=== PATIENT | male | born 1985 | race Caucasian/White ===

== ENCOUNTER 2019-07-08 12:25 | Emergency (ER) | payer OTHER ==
[~2019-07-08] VITALS: Ht 175.3 cm; Wt 73.1 kg
[2019-07-08] MEDS ORDERED: KEPP1TAB2 PO (12:37)
[2019-07-08 13:28] LABS: BASO # 0.1 10^3/uL (0.0-0.2); BASO % 1.1 % (0.0-1.0); EOS # 0.3 10^3/uL (0.0-0.5); EOS % 4.2 % (0.0-3.0); HEMATOCRIT 46.1 % (42.0-52.0); HEMOGLOBIN 15.8 g/dl (13.5-17.5); LYMPH # 2.4 10^3/uL (1.5-5.0); LYMPH % 36.9 % (24.0-44.0); MEAN CORPUSCULAR HEMOGLOBIN 31.7 pg (27.0-33.0); MEAN CORPUSCULAR HGB CONC 34.3 g/dl (32.0-36.5); MEAN CORPUSCULAR VOLUME 92.6 fl (80.0-96.0); MONO # 0.3 10^3/uL (0.0-0.8); MONO % 4.8 % (0.0-5.0); NEUTROPHILS # 3.4 10^3/uL (1.5-8.5); NEUTROPHILS % 52.8 % (36.0-66.0); PLATELET COUNT, AUTOMATED 189 10^3/uL (150-450); RED BLOOD COUNT 4.98 10^6/uL (4.30-6.10); WHITE BLOOD COUNT 6.5 10^3/uL (4.0-10.0)
--- NOTE | 2019-07-08 13:37 | REP ---
Clinical: Syncope . Comparison: None . Findings: The mediastinum and cardiac silhouette are stable and within normal limits for portable technique. The lung osborne are clear without acute consolidation, effusion, or pneumothorax. Skeletal structures are intact. Impression: No acute cardiopulmonary process appreciated. Electronically Signed by Josh Pat MD 07/08/2019 01:29 P
--- NOTE | 2019-07-08 13:50 | REP ---
Clinical: Syncope. Injury. . Comparison: None . Findings: The ventricles, sulci, and cisterns are normal in position and appearance. Antunez-white differentiation is maintained. No acute intracranial hemorrhage, mass/mass effect, pathology or trauma/injury. No evidence for acute infarction. No extra-axial fluid collection. Calvarium is intact. Paranasal sinuses and mastoid air cells are clear. Impression: Normal noncontrast head CT. No evidence for acute intracranial pathology or trauma/injury. Electronically Signed by Josh Pat MD 07/08/2019 01:42 P
--- NOTE | 2019-07-08 13:51 | REP ---
Clinical: Syncope. Fall/injury. Technique: Axial noncontrast images from the skull base to the thoracic inlet with coronal and sagittal re-formations Findings: Normal alignment and lordosis is maintained. Cervical vertebral bodies including transverse processes and spinous processes are intact and there is no evidence for acute fracture / compression injury or subluxation. Spinal canal is patent. Posterior elements are intact. Paravertebral soft tissues are normal. Impression: Normal noncontrast cervical spine CT. No evidence for acute pathology or trauma/injury. Electronically Signed by Josh Pat MD 07/08/2019 01:43 P
[2019-07-08 13:56] LABS: BLOOD UREA NITROGEN 9 MG/DL (7-18); CALCIUM LEVEL 9.3 MG/DL (8.5-10.1); CARBON DIOXIDE LEVEL 24 MEQ/L (21-32); CHLORIDE LEVEL 108 MEQ/L (98-107); CK-MB VALUE MASS 1.9 NG/ML (<3.6); CPK CREATINE PHOSPHOKINASE 187 U/L (39-308); CREATININE FOR GFR 0.74 MG/DL (0.70-1.30); GLOMERULAR FILTRATION RATE > 60.0 (>60); GLUCOSE, FASTING 83 MG/DL (70-100); MB/CK RELATIVE INDEX 1.02 (< OR =4); NT-PRO BNP 55 PG/ML (<125); POTASSIUM SERUM 4.3 MEQ/L (3.5-5.1); SODIUM LEVEL 140 MEQ/L (136-145); TROPONIN I < 0.02 NG/ML (< 0.10)
[2019-07-08 14:12] LABS: INR 1.15; PROTHROMBIN TIME 14.4 SECONDS (11.8-14.0)
[2019-07-08 14:13] LABS: PARTIAL THROMBOPLASTIN TIME 32.8 SECONDS (25.0-38.4)
[2019-07-08 14:15] LABS: D-DIMER QUANT 332.49 ng/ml (<500)
[2019-07-08] MEDS ORDERED: DERMABOND TOPICAL SKIN ADHESIVE TOP ONE (14:15)
[2019-07-08] MEDS ORDERED: ADACEL/BOOSTRIX VACCINE (DIPHTH/PERTUSS/ACELL/TETANUS)0.5ML SYR (90715) IM ONE (14:30)
[2019-07-08 15:02] LABS: AMPHETAMINES LEVEL URINE NEGATIVE (NEGATIVE); BARBITURATES URINE NEGATIVE (NEGATIVE); BENZODIAZEPINES URINE NEGATIVE (NEGATIVE); CANNABINOIDS URINE NEGATIVE (NEGATIVE); COCAINE METABOLITE URINE NEGATIVE (NEGATIVE); METHADONE URINE NEGATIVE (NEGATIVE); OPIATES URINE NEGATIVE (NEGATIVE); PHENCYCLIDINE URINE NEGATIVE (NEGATIVE)
[2019-07-08] MEDS ORDERED: levETIRAcetam INJection 1,000 MG in D5W 100 ML IV ONE (15:15)
[2019-07-08] MEDS ORDERED: IBUP-1022 PO (15:49)
[2019-07-08 16:34] VITALS: BP 107/55
--- NOTE | 2019-07-09 07:04 | ECGEPIP ---
[facility] - ED Test Date: 2019-07-08 Pat Name: HAKEEM REESE Department: Room: - Gender: Male Crt: JOSUE : 1985 Requested By: Adalberto Garcia Order Number: [id number] Reading MD: Adalberto Cedeno Measurements Intervals [place] Rate: 50 P: 69 [place]: 164 QRS: 104 QRSD: 89 T: 68 QT: 419 QTc: 384 Interpretive Statements SINUS BRADYCARDIA RIGHT AXIS DEVIATION NO PRIORS FOR COMPARISON Electronically Signed on 07-09-2019 7:03:55 EDT by Adalberto Cedeno
== END 2019-07-08 16:36 | disposition home or self-care (01) ==
LOC: EDBD 12:25 → M ED 12:25
DX: R55 Syncope and collapse (principal); G40.909 Epilepsy, unspecified, not intractable, without status epilepticus; S01.81XA Laceration without foreign body of other part of head, initial encounter; W19.XXXA Unspecified fall, initial encounter; Y92.89 Other specified places as the place of occurrence of the external cause; Y93.89 Activity, other specified; Y99.8 Other external cause status; R00.1 Bradycardia, unspecified; R07.9 Chest pain, unspecified; Z79.899 Other long term (current) drug therapy; F17.200 Nicotine dependence, unspecified, uncomplicated
CPT/HCPCS: 12011; 36415; 70450; 71045; 72125; 80048; 80180; 80307; 81001; 82550; 82553; 83880; 84484; 85025; 85379; 85610; 85730; 90471; 90715; 93005; 93041; 94760; 96365; 99285; J1953

== ENCOUNTER 2020-01-29 02:57 | Emergency (ER) | payer OTHER ==
[~2020-01-29] VITALS: Ht 175.3 cm; Wt 77.3 kg
[~2020-01-29 02:57] MED LIST: IBUP-1022 PO; KEPP1TAB2 PO
[2020-01-29] MEDS ORDERED: NS 1,000 ML IV ONE (03:30)
[2020-01-29] MEDS ORDERED: levETIRAcetam INJection 1,500 MG in D5W 100 ML IV ONE (03:30)
[2020-01-29 03:55] LABS: BLOOD UREA NITROGEN 8 MG/DL (7-18); CALCIUM LEVEL 8.1 MG/DL (8.5-10.1); CARBON DIOXIDE LEVEL 28 MEQ/L (21-32); CHLORIDE LEVEL 112 MEQ/L (98-107); CREATININE FOR GFR 0.65 MG/DL (0.70-1.30); GLOMERULAR FILTRATION RATE > 60.0 (>60); GLUCOSE, FASTING 72 MG/DL (70-100); SODIUM LEVEL 145 MEQ/L (136-145)
[2020-01-29 04:30] VITALS: BP 108/59
[2020-01-30] MEDS ORDERED: KEPP1TAB PO (16:12)
== END 2020-01-29 04:53 | disposition home or self-care (01) ==
LOC: M ED 02:57
DX: G40.909 Epilepsy, unspecified, not intractable, without status epilepticus (principal); Z91.19 Patient's noncompliance with other medical treatment and regimen
CPT/HCPCS: 80048; 96365; 99284; J1953

== ENCOUNTER 2020-01-30 16:04 | Emergency (ER) | payer OTHER ==
[~2020-01-30] VITALS: Ht 177.8 cm; Wt 72.7 kg
[2020-01-30] MEDS ORDERED: KEPP1TAB PO (16:12)
[2020-01-30] MEDS ORDERED: NS 1,000 ML IV ONE (16:15)
--- NOTE | 2020-01-30 16:18 | ECGEPIP ---
[facility] - ED Test Date: 2020-01-30 Pat Name: HAKEEM REESE Department: Room: - Gender: Male General Doc: : 1985 Requested By: ZULEIKA IRWIN Order Number: [id number] Reading MD: Emily Jackson Measurements Intervals [place] Rate: 58 P: 63 [place]: 162 QRS: 107 QRSD: 87 T: 62 QT: 416 QTc: 411 Interpretive Statements SINUS BRADYCARDIA POSSIBLE LEFT ATRIAL ENLARGEMENT MARKED RIGHT AXIS DEVIATION SIMILAR 07/08/19 Electronically Signed on 01-30-2020 16:17:55 EDT by Emily Jackson
[2020-01-30 16:24] LABS: BASO # 0.1 10^3/uL (0.0-0.2); BASO % 1.5 % (0.0-1.0); EOS # 0.1 10^3/uL (0.0-0.5); EOS % 2.3 % (0.0-3.0); HEMATOCRIT 47.3 % (42.0-52.0); HEMOGLOBIN 15.5 g/dl (13.5-17.5); LYMPH # 1.5 10^3/uL (1.5-5.0); LYMPH % 25.6 % (24.0-44.0); MEAN CORPUSCULAR HEMOGLOBIN 30.2 pg (27.0-33.0); MEAN CORPUSCULAR HGB CONC 32.8 g/dl (32.0-36.5); MONO # 0.7 10^3/uL (0.0-0.8); MONO % 11.3 % (0.0-5.0); NEUTROPHILS # 3.5 10^3/uL (1.5-8.5); PLATELET COUNT, AUTOMATED 281 10^3/uL (150-450); RED BLOOD COUNT 5.14 10^6/uL (4.30-6.10)
[2020-01-30] MEDS ORDERED: levETIRAcetam INJection 1,000 MG in D5W 100 ML IV ONE (16:30)
--- NOTE | 2020-01-30 16:39 | REP ---
Clinical: Altered mental status . Comparison: 07/08/2019. Technique: Axial noncontrast images from the skull base to the vertex with coronal re-formations. Findings: The ventricles, sulci, and cisterns are normal in position and appearance. Antunez-white differentiation is maintained. No acute intracranial hemorrhage, mass/mass effect, pathology or trauma/injury. No evidence for acute infarction. No extra-axial fluid collection. Calvarium is intact. Paranasal sinuses and mastoid air cells are clear. Impression: Normal noncontrast head CT. No evidence for acute intracranial pathology or trauma/injury. Electronically Signed by oJsh Pat MD 01/30/2020 04:31 P
[2020-01-30 17:06] LABS: ACETAMINOPHEN LEVEL < 2.0 UG/ML (10.0-30.0); ALBUMIN 3.6 GM/DL (3.2-5.2); ALT/SGPT 24 U/L (12-78); BILIRUBIN,DIRECT 0.1 MG/DL (0.0-0.2); BILIRUBIN,TOTAL 0.2 MG/DL (0.2-1.0); BLOOD UREA NITROGEN 10 MG/DL (7-18); CALCIUM LEVEL 8.8 MG/DL (8.5-10.1); CARBON DIOXIDE LEVEL 28 MEQ/L (21-32); CHLORIDE LEVEL 107 MEQ/L (98-107); CK-MB VALUE MASS < 1.0 NG/ML (<3.6); CPK CREATINE PHOSPHOKINASE 101 U/L (39-308); CREATININE FOR GFR 0.72 MG/DL (0.70-1.30); ETHYL ALCOHOL (ETHANOL) < 0.003 % (0.000-0.010); GLOMERULAR FILTRATION RATE > 60.0 (>60); GLUCOSE, FASTING 88 MG/DL (70-100); MB/CK RELATIVE INDEX 0.99 (< OR =4); POTASSIUM SERUM 4.3 MEQ/L (3.5-5.1); SALICYLATE LEVEL 3.1 MG/DL (5.0-30.0); SODIUM LEVEL 142 MEQ/L (136-145); TOTAL PROTEIN 7.1 GM/DL (6.4-8.2); TROPONIN I < 0.02 NG/ML (< 0.10)
[2020-01-30 17:45] VITALS: BP 114/62
== END 2020-01-30 18:05 | disposition home or self-care (01) ==
LOC: M ED 16:04
DX: R56.9 Unspecified convulsions (principal); R00.1 Bradycardia, unspecified; F19.10 Other psychoactive substance abuse, uncomplicated; S09.90XA Unspecified injury of head, initial encounter; X58.XXXA Exposure to other specified factors, initial encounter; Y92.9 Unspecified place or not applicable; Y93.9 Activity, unspecified; Y99.9 Unspecified external cause status; Z91.14 Patient's other noncompliance with medication regimen; F17.200 Nicotine dependence, unspecified, uncomplicated; Z79.899 Other long term (current) drug therapy
CPT/HCPCS: 70450; 80048; 80076; 80180; 82550; 82553; 84484; 85025; 93005; 93041; 94760; 96365; 99285; G0480; J1953

== ENCOUNTER 2020-01-31 15:10 | Emergency (ER) | payer OTHER ==
[~2020-01-31] VITALS: Ht 177.8 cm; Wt 72.7 kg
[~2020-01-31 15:10] MED LIST changes: +KEPP1TAB PO
[2020-01-31 16:15] LABS: BASO # 0.1 10^3/uL (0.0-0.2); BASO % 1.7 % (0.0-1.0); EOS # 0.2 10^3/uL (0.0-0.5); EOS % 3.3 % (0.0-3.0); HEMATOCRIT 48.2 % (42.0-52.0); LYMPH # 1.3 10^3/uL (1.5-5.0); LYMPH % 26.5 % (24.0-44.0); MEAN CORPUSCULAR HEMOGLOBIN 30.4 pg (27.0-33.0); MEAN CORPUSCULAR HGB CONC 33.2 g/dl (32.0-36.5); MEAN CORPUSCULAR VOLUME 91.5 fl (80.0-96.0); MONO # 0.7 10^3/uL (0.0-0.8); MONO % 14.9 % (0.0-5.0); NEUTROPHILS # 2.6 10^3/uL (1.5-8.5); NEUTROPHILS % 53.2 % (36.0-66.0); PLATELET COUNT, AUTOMATED 243 10^3/uL (150-450); RED BLOOD COUNT 5.27 10^6/uL (4.30-6.10); WHITE BLOOD COUNT 4.8 10^3/uL (4.0-10.0)
--- NOTE | 2020-01-31 17:25 | REP ---
CT BRAIN WITHOUT IV CONTRAST: CT brain performed without IV contrast. Coronal reconstruction images are performed. The ventricles are normal in size and position with no midline shift or mass effect. Antunez/white differentiation is well maintained. There is no acute intracranial hemorrhage. There is no extra-axial fluid collections. There is no skull fracture. IMPRESSION: Negative noncontrast CT brain. Electronically Signed by Yung Antunez MD 02/01/2020 10:26 A
[2020-01-31 18:30] VITALS: BP 105/58
[2020-01-31 18:34] LABS: BLOOD UREA NITROGEN 10 MG/DL (7-18); CALCIUM LEVEL 8.4 MG/DL (8.5-10.1); CARBON DIOXIDE LEVEL 27 MEQ/L (21-32); CHLORIDE LEVEL 108 MEQ/L (98-107); CREATININE FOR GFR 0.57 MG/DL (0.70-1.30); GLOMERULAR FILTRATION RATE > 60.0 (>60); GLUCOSE, FASTING 95 MG/DL (70-100); POTASSIUM SERUM 4.6 MEQ/L (3.5-5.1); SODIUM LEVEL 141 MEQ/L (136-145)
--- NOTE | 2020-01-31 18:54 | ECGEPIP ---
[facility] - ED Test Date: 2020-01-31 Pat Name: HAKEEM REESE Department: Room: - Gender: Male Pastoral Assistant: FABRICIO : 1985 Requested By: Camden Carr Order Number: [id number] Reading MD: Camden Carr Measurements Intervals [place] Rate: 58 P: 57 [place]: 163 QRS: 102 QRSD: 88 T: 61 QT: 415 QTc: 409 Interpretive Statements SINUS BRADYCARDIA WITH SINUS ARRHYTHMIA POSSIBLE LEFT ATRIAL ENLARGEMENT MARKED RIGHT AXIS DEVIATION NONSPECIFIC ST T WAVE [facility]ES cw 01/30/[address] T [facility] Electronically Signed on 01-31-2020 18:53:40 EDT by Camden Carr
== END 2020-01-31 18:54 | disposition home or self-care (01) ==
LOC: M ED 15:10
DX: R56.9 Unspecified convulsions (principal); S09.90XA Unspecified injury of head, initial encounter; X58.XXXA Exposure to other specified factors, initial encounter; Y92.9 Unspecified place or not applicable; Y93.9 Activity, unspecified; Y99.9 Unspecified external cause status; R00.1 Bradycardia, unspecified

== ENCOUNTER 2020-05-17 16:42 | Emergency (ER) | payer OTHER ==
[~2020-05-17] VITALS: Ht 170.2 cm; Wt 72.7 kg
[2020-05-17] MEDS ORDERED: FLOM0.4C39 PO ×2 (16:49→18:01)
[2020-05-17] MEDS ORDERED: TAMSULOSIN 0.4 MG CAP PO ONE (18:00)
[2020-05-17 21:04] VITALS: BP 129/65
== END 2020-05-17 21:05 | disposition home or self-care (01) ==
LOC: M ED 16:42
DX: R33.9 Retention of urine, unspecified (principal); G40.919 Epilepsy, unspecified, intractable, without status epilepticus; F17.200 Nicotine dependence, unspecified, uncomplicated; Z79.899 Other long term (current) drug therapy

== ENCOUNTER 2020-06-11 16:06 | Inpatient (IN) | payer OTHER ==
[~2020-06-11 16:06] MED LIST changes: +DOCUSATE SODIUM 100 MG CAP ONE; +ENOXAPARIN 40MG/0.4ML SYRINGE (J1650 PER 10MG) ONE; +ETOMIDATE INJ 20MG/10ML VIAL ONE; +FLOM0.4C39 PO; +SUCCINYLCHOLINE 100 MG/5 ML SYRINGE (J0330) ONE; +propofoL 200 MG/20 ML VIAL ONE
[2020-06-11] MEDS ORDERED: NALOXONE 2MG/2ML SYRINGE (J2310 PER 1MG) As Ordered ONE ×2 (16:13→16:32)
[2020-06-11] MEDS ORDERED: NALOXONE 2MG/2ML SYRINGE (J2310 PER 1MG) ONE ×2 (16:13→16:32)
[2020-06-11] MEDS ORDERED: SUCCINYLCHOLINE INJ 200 MG/10 ML VIAL (J0330) ONE (16:32)
[2020-06-11] MEDS ORDERED: ETOMIDATE INJ 20MG/10ML VIAL ONE (16:32)
[2020-06-11] MEDS ORDERED: PROPOFOL 1,000 MG/100 ML VIAL ONE ×3 (16:32→23:18)
[2020-06-11] MEDS ORDERED: ETOMIDATE INJ 20MG/10ML VIAL As Ordered ONE (16:39)
[2020-06-11] MEDS ORDERED: SUCCINYLCHOLINE INJ 200 MG/10 ML VIAL (J0330) As Ordered ONE (16:40)
[2020-06-11] MEDS ORDERED: PROPOFOL 1,000 MG/100 ML VIAL As Ordered ONE ×3 (16:45→23:18)
[2020-06-11] MEDS ORDERED: MIDAZOLAM 5MG/ML 1ML VIAL (J2250 PER 1MG) ONE ×4 (16:54→20:30)
[2020-06-11] MEDS ORDERED: MIDAZOLAM 5MG/ML 1ML VIAL (J2250 PER 1MG) As Ordered ONE ×4 (16:54→20:30)
[2020-06-11] MEDS ORDERED: MIDAZOLAM INJ 2MG/2ML VIAL (J2250 PER 1MG) As Ordered ONE ×2 (17:30→17:36)
[2020-06-11] MEDS ORDERED: MIDAZOLAM INJ 2MG/2ML VIAL (J2250 PER 1MG) ONE ×4 (17:30→17:36)
[2020-06-11] MEDS ORDERED: CHARCOAL ACTIVATED LIQUID 25 GM/120 ML BTL As Ordered ONE (18:39)
[2020-06-11] MEDS ORDERED: PERCOCET 5MG/325MG TAB ONE (18:43)
[2020-06-11] MEDS ORDERED: CHARCOAL ACTIVATED LIQUID 25 GM/120 ML BTL ONE (19:08)
[2020-06-11] MEDS ORDERED: DOCUSATE SODIUM 100 MG CAP ONE (21:18)
[2020-06-11] MEDS ORDERED: HEPARIN SOD (PORCINE) 5000UNITS/ML 1ML VIAL/SYRINGE As Ordered ONE (23:18)
[2020-06-11] MEDS ORDERED: HEPARIN SOD (PORCINE) 5000UNITS/ML 1ML VIAL/SYRINGE ONE (23:18)
[2020-06-12] MEDS ORDERED: MIDAZOLAM INJ 2MG/2ML VIAL (J2250 PER 1MG) ONE ×2 (00:01→06:12)
[2020-06-12] MEDS ORDERED: MIDAZOLAM INJ 2MG/2ML VIAL (J2250 PER 1MG) As Ordered ONE ×2 (00:01→06:12)
[2020-06-12] MEDS ORDERED: PROPOFOL 1,000 MG/100 ML VIAL ONE ×2 (02:27→05:05)
[2020-06-12] MEDS ORDERED: PROPOFOL 1,000 MG/100 ML VIAL As Ordered ONE ×2 (02:27→05:05)
[2020-06-12] MEDS ORDERED: PERCOCET 5MG/325MG TAB ONE ×3 (02:33→18:51)
[2020-06-12] MEDS ORDERED: HEPARIN SOD (PORCINE) 5000UNITS/ML 1ML VIAL/SYRINGE As Ordered ONE ×3 (05:53→21:34)
[2020-06-12] MEDS ORDERED: HEPARIN SOD (PORCINE) 5000UNITS/ML 1ML VIAL/SYRINGE ONE ×3 (05:53→21:34)
[2020-06-12] MEDS ORDERED: ENOXAPARIN 40MG/0.4ML SYRINGE (J1650 PER 10MG) ONE (08:41)
[2020-06-12] MEDS ORDERED: DOCUSATE SODIUM 100 MG CAP ONE ×2 (08:41→18:51)
[2020-06-12] MEDS ORDERED: PANTOPRAZOLE 40MG VIAL (C9113 PER 1) As Ordered ONE (09:00)
[2020-06-12] MEDS ORDERED: PANTOPRAZOLE 40MG VIAL (C9113 PER 1) ONE (09:00)
[2020-06-12] MEDS ORDERED: ACETAMINOPHEN TAB 650MG DOSE (2X325MG) ONE ×2 (14:03→21:34)
[2020-06-12] MEDS ORDERED: levETIRAcetam 250MG TABLET (KEPPRA) ONE ×2 (14:23→20:58)
[2020-06-12] MEDS ORDERED: levETIRAcetam 250MG TABLET (KEPPRA) As Ordered ONE ×2 (14:24→20:58)
[2020-06-12] MEDS ORDERED: MAALOX 30 ML SUSP *UDC ONE (18:51)
[2020-06-12] MEDS ORDERED: cefTRIAXone SOD 1GM VIAL (J0696 PER 250MG) ONE (21:34)
[2020-06-12] MEDS ORDERED: cefTRIAXone SOD 1GM VIAL (J0696 PER 250MG) As Ordered ONE (23:18)
[2020-06-12] MEDS ORDERED: ACETAMINOPHEN TAB 650MG DOSE (2X325MG) As Ordered ONE (23:21)
[2020-06-13] MEDS ORDERED: HEPARIN SOD (PORCINE) 5000UNITS/ML 1ML VIAL/SYRINGE ONE (05:49)
[2020-06-13] MEDS ORDERED: HEPARIN SOD (PORCINE) 5000UNITS/ML 1ML VIAL/SYRINGE As Ordered ONE (05:49)
[2020-06-13] MEDS ORDERED: PERCOCET 5MG/325MG TAB ONE ×2 (08:54→20:56)
[2020-06-13] MEDS ORDERED: DOCUSATE SODIUM 100 MG CAP ONE (08:54)
[2020-06-13] MEDS ORDERED: PANTOPRAZOLE 40MG VIAL (C9113 PER 1) ONE (10:30)
[2020-06-13] MEDS ORDERED: levETIRAcetam 250MG TABLET (KEPPRA) ONE ×2 (10:30→20:45)
[2020-06-13] MEDS ORDERED: PANTOPRAZOLE 40MG VIAL (C9113 PER 1) As Ordered ONE (10:30)
[2020-06-13] MEDS ORDERED: levETIRAcetam 250MG TABLET (KEPPRA) As Ordered ONE ×2 (10:30→20:45)
[2020-06-13] MEDS ORDERED: ENOXAPARIN 40MG/0.4ML SYRINGE (J1650 PER 10MG) ONE (17:48)
[2020-06-13] MEDS ORDERED: ENOXAPARIN 40MG/0.4ML SYRINGE (J1650 PER 10MG) As Ordered ONE (17:48)
[2020-06-13] MEDS ORDERED: MAALOX 30 ML SUSP *UDC ONE (18:51)
[2020-06-13] MEDS ORDERED: ACETAMINOPHEN TAB 650MG DOSE (2X325MG) ONE ×2 (20:45→20:56)
[2020-06-13] MEDS ORDERED: ACETAMINOPHEN TAB 650MG DOSE (2X325MG) As Ordered ONE (20:45)
[2020-06-14] MEDS ORDERED: cefTRIAXone SOD 1GM VIAL (J0696 PER 250MG) As Ordered ONE ×2 (00:59→23:16)
[2020-06-14] MEDS ORDERED: cefTRIAXone SOD 1GM VIAL (J0696 PER 250MG) ONE ×2 (00:59→23:16)
[2020-06-14] MEDS ORDERED: PERCOCET 5MG/325MG TAB ONE ×2 (04:00→09:16)
[2020-06-14] MEDS ORDERED: levETIRAcetam 250MG TABLET (KEPPRA) ONE ×2 (08:31→20:47)
[2020-06-14] MEDS ORDERED: levETIRAcetam 250MG TABLET (KEPPRA) As Ordered ONE ×2 (08:31→20:47)
[2020-06-14] MEDS ORDERED: ENOXAPARIN 40MG/0.4ML SYRINGE (J1650 PER 10MG) ONE ×2 (09:16→17:15)
[2020-06-14] MEDS ORDERED: DOCUSATE SODIUM 100 MG CAP ONE (09:16)
[2020-06-14] MEDS ORDERED: NICOTINE 21MG/24HR 1 EA TRANSDERMAL ONE (15:26)
[2020-06-14] MEDS ORDERED: IBUPROFEN 800 MG TAB ONE ×2 (15:26→21:24)
[2020-06-14] MEDS ORDERED: ENOXAPARIN 40MG/0.4ML SYRINGE (J1650 PER 10MG) As Ordered ONE (17:15)
[2020-06-14] MEDS ORDERED: ACETAMINOPHEN TAB 650MG DOSE (2X325MG) ONE (20:47)
[2020-06-14] MEDS ORDERED: ACETAMINOPHEN TAB 650MG DOSE (2X325MG) As Ordered ONE (20:47)
[2020-06-15] MEDS ORDERED: IBUPROFEN 800 MG TAB ONE (06:43)
[2020-06-15] MEDS ORDERED: CEPHALEXIN 500 MG CAP As Ordered ONE (08:37)
[2020-06-15] MEDS ORDERED: CEPHALEXIN 500 MG CAP ONE (08:37)
--- NOTE | 2020-07-18 09:50 | ECGEPIP ---
[facility] - ED Test Date: 2020-06-11 Pat Name: HAKEEM REESE Department: Room: W3034-34 Gender: Male Construction Controller: DAIN : 1985 Requested By: WENDY Escalona Order Number: [id number] Reading MD: Emily Jackson Measurements Intervals [place] Rate: 67 P: 70 [place]: 141 QRS: 103 QRSD: 90 T: 70 QT: 402 QTc: 427 Interpretive Statements SINUS RHYTHM WITH SINUS ARRHYTHMIA MARKED RIGHT AXIS DEVIATION ABNORMAL ECG SEE SCANNED DOWNTIME REPORT
[2020-07-28 18:58] LABS: BASO # 0.1 10^3/uL (0.0-0.2); BASO % 0.7 % (0.0-1.0); EOS # 0.1 10^3/uL (0.0-0.5); EOS % 1.2 % (0.0-3.0); HEMATOCRIT 41.6 % (42.0-52.0); HEMOGLOBIN 13.9 g/dl (13.5-17.5); LYMPH # 1.4 10^3/uL (1.5-5.0); LYMPH % 15.2 % (24.0-44.0); MEAN CORPUSCULAR HEMOGLOBIN 30.6 pg (27.0-33.0); MEAN CORPUSCULAR HGB CONC 33.4 g/dl (32.0-36.5); MEAN CORPUSCULAR VOLUME 91.6 fl (80.0-96.0); MONO # 0.4 10^3/uL (0.0-0.8); MONO % 4.7 % (0.0-5.0); NEUTROPHILS # 6.9 10^3/uL (1.5-8.5); NEUTROPHILS % 77.9 % (36.0-66.0); PLATELET COUNT, AUTOMATED 205 10^3/uL (150-450); RED BLOOD COUNT 4.54 10^6/uL (4.30-6.10); WHITE BLOOD COUNT 8.9 10^3/uL (4.0-10.0)
[2020-07-28 18:59] LABS: INR 1.16; PARTIAL THROMBOPLASTIN TIME 31.9 SECONDS (24.2-38.5); PROTHROMBIN TIME 15.1 SECONDS (12.5-14.3)
[2020-08-02 08:19] LABS: BASO # 0.1 10^3/uL (0.0-0.2); BASO % 0.9 % (0.0-1.0); EOS # 0.3 10^3/uL (0.0-0.5); EOS % 4.6 % (0.0-3.0); HEMATOCRIT 39.5 % (42.0-52.0); HEMOGLOBIN 13.1 g/dl (13.5-17.5); LYMPH # 1.8 10^3/uL (1.5-5.0); LYMPH % 26.6 % (24.0-44.0); MEAN CORPUSCULAR HEMOGLOBIN 30.5 pg (27.0-33.0); MEAN CORPUSCULAR HGB CONC 33.2 g/dl (32.0-36.5); MEAN CORPUSCULAR VOLUME 92.1 fl (80.0-96.0); MONO # 0.6 10^3/uL (0.0-0.8); MONO % 9.4 % (0.0-5.0); NEUTROPHILS # 3.9 10^3/uL (1.5-8.5); NEUTROPHILS % 58.2 % (36.0-66.0); PLATELET COUNT, AUTOMATED 198 10^3/uL (150-450); RED BLOOD COUNT 4.29 10^6/uL (4.30-6.10); WHITE BLOOD COUNT 6.7 10^3/uL (4.0-10.0)
[2020-08-03 08:04] LABS: HEMATOCRIT 37.5 % (42.0-52.0); HEMOGLOBIN 12.6 g/dl (13.5-17.5); MEAN CORPUSCULAR HEMOGLOBIN 30.5 pg (27.0-33.0); MEAN CORPUSCULAR HGB CONC 33.6 g/dl (32.0-36.5); MEAN CORPUSCULAR VOLUME 90.8 fl (80.0-96.0); PLATELET COUNT, AUTOMATED 208 10^3/uL (150-450); RED BLOOD COUNT 4.13 10^6/uL (4.30-6.10); WHITE BLOOD COUNT 7.1 10^3/uL (4.0-10.0)
[2020-08-06 01:00] LABS: HEMOGLOBIN 12.9 g/dl (13.5-17.5); MEAN CORPUSCULAR HEMOGLOBIN 30.4 pg (27.0-33.0); MEAN CORPUSCULAR HGB CONC 33.1 g/dl (32.0-36.5); MEAN CORPUSCULAR VOLUME 91.8 fl (80.0-96.0); PLATELET COUNT, AUTOMATED 198 10^3/uL (150-450); RED BLOOD COUNT 4.25 10^6/uL (4.30-6.10); WHITE BLOOD COUNT 6.1 10^3/uL (4.0-10.0)
[2020-08-06 02:32] LABS: APPEARANCE, URINE CLEAR (CLEAR); BACTERIA, URINE AUTO NEGATIVE (NEGATIVE); BILIRUBIN, URINE AUTO NEGATIVE (NEGATIVE); BLOOD, URINE BLOOD NEGATIVE (NEGATIVE); COLOR, URINE STRAW (YELLOW); GLUCOSE, URINE (UA) AUTO NEGATIVE (NEGATIVE); KETONE, URINE AUTO NEGATIVE (NEGATIVE); LEUKOCYTE ESTERASE, URINE AUTO NEGATIVE (NEGATIVE); NITRITE, URINE AUTO NEGATIVE (NEGATIVE); PROTEIN, URINE AUTO NEGATIVE (NEGATIVE); RBC, URINE AUTO 1 /HPF (0-3); SPECIFIC GRAVITY URINE AUTO 1.006 (1.002-1.035); SQUAMOUS EPITHELIAL CELL UR AU 0 /HPF (0-6); UROBILINOGEN, URINE AUTO 0.2 mg/dL (0.0-2.0); WBC, URINE AUTO 1 /HPF (0-3)
[2020-08-06 16:43] LABS: HEMATOCRIT 38.7 % (42.0-52.0); MEAN CORPUSCULAR HEMOGLOBIN 30.7 pg (27.0-33.0); MEAN CORPUSCULAR HGB CONC 33.6 g/dl (32.0-36.5); MEAN CORPUSCULAR VOLUME 91.3 fl (80.0-96.0); PLATELET COUNT, AUTOMATED 204 10^3/uL (150-450); RED BLOOD COUNT 4.24 10^6/uL (4.30-6.10); WHITE BLOOD COUNT 4.8 10^3/uL (4.0-10.0)
[2020-09-04 22:09] LABS: ABG BASE EXCESS -1.9 (-2.0-2.0); ABG HCO3 23.6 MEQ/L (22.0-26.0); ABG MODE OF VENT R/A; ABG O2 SATURATION 99.3 % (95.0-99.0); ABG PARTIAL PRESSURE O2 177.5 mmHg (75.0-100.0); ABG STANDARD HCO3 22.9 MEQ/L (22.0-26.0); ABG TOTAL CO2 24.9 MEQ/L (22.0-29.0); ABG pH (ARTERIAL) 7.357 UNITS (7.350-7.450)
[2020-09-04 23:13] LABS: ACETAMINOPHEN LEVEL < 2.0 UG/ML (10.0-30.0); ALBUMIN 3.6 GM/DL (3.2-5.2); ALT/SGPT 17 U/L (12-78); BILIRUBIN,TOTAL 0.3 MG/DL (0.2-1.0); BLOOD UREA NITROGEN 13 MG/DL (7-18); CALCIUM LEVEL 8.7 MG/DL (8.5-10.1); CARBON DIOXIDE LEVEL 22 MEQ/L (21-32); CHLORIDE LEVEL 109 MEQ/L (98-107); CREATININE FOR GFR 0.71 MG/DL (0.70-1.30); ETHYL ALCOHOL (ETHANOL) < 0.003 % (0.000-0.010); GLOMERULAR FILTRATION RATE > 60.0 (>60); GLUCOSE, FASTING 125 MG/DL (70-100); POTASSIUM SERUM 3.6 MEQ/L (3.5-5.1); SALICYLATE LEVEL 3.3 MG/DL (5.0-30.0); SODIUM LEVEL 142 MEQ/L (136-145); THYROID STIMULATING HORMONE 0.688 uIU/ML (0.358-3.740)
[2020-09-04 23:13] LABS: AMPHETAMINES LEVEL URINE NEGATIVE (NEGATIVE); BARBITURATES URINE NEGATIVE (NEGATIVE); BENZODIAZEPINES URINE POSITIVE (NEGATIVE); CANNABINOIDS URINE NEGATIVE (NEGATIVE); COCAINE METABOLITE URINE NEGATIVE (NEGATIVE); METHADONE URINE NEGATIVE (NEGATIVE); OPIATES URINE NEGATIVE (NEGATIVE); PHENCYCLIDINE URINE NEGATIVE (NEGATIVE)
[2020-09-05 04:02] LABS: ABG BASE EXCESS -1.1 (-2.0-2.0); ABG HCO3 23.4 MEQ/L (22.0-26.0); ABG PARTIAL PRESSURE CO2 38.6 mmHg (35.0-45.0); ABG PARTIAL PRESSURE O2 102.9 mmHg (75.0-100.0); ABG STANDARD HCO3 23.6 MEQ/L (22.0-26.0); ABG TOTAL CO2 24.6 MEQ/L (22.0-29.0); ABG pH (ARTERIAL) 7.401 UNITS (7.350-7.450)
[2020-09-05 04:03] LABS: ABG O2 SATURATION 97.6 % (95.0-99.0)
[2020-09-05 04:11] LABS: BLOOD UREA NITROGEN 8 MG/DL (7-18); CALCIUM LEVEL 8.4 MG/DL (8.5-10.1); CARBON DIOXIDE LEVEL 24 MEQ/L (21-32); CHLORIDE LEVEL 118 MEQ/L (98-107); CPK CREATINE PHOSPHOKINASE 1235 U/L (39-308); CREATININE FOR GFR 0.63 MG/DL (0.70-1.30); GLOMERULAR FILTRATION RATE > 60.0 (>60); GLUCOSE, FASTING 84 MG/DL (70-100); PHOSPHORUS LEVEL 4.2 MG/DL (2.5-4.9); POTASSIUM SERUM 4.2 MEQ/L (3.5-5.1); SODIUM LEVEL 148 MEQ/L (136-145)
[2020-09-05 13:47] LABS: BLOOD UREA NITROGEN 7 MG/DL (7-18); CALCIUM LEVEL 8.3 MG/DL (8.5-10.1); CARBON DIOXIDE LEVEL 27 MEQ/L (21-32); CHLORIDE LEVEL 113 MEQ/L (98-107); CREATININE FOR GFR 0.73 MG/DL (0.70-1.30); GLOMERULAR FILTRATION RATE > 60.0 (>60); GLUCOSE, FASTING 90 MG/DL (70-100); POTASSIUM SERUM 3.5 MEQ/L (3.5-5.1); SODIUM LEVEL 148 MEQ/L (136-145)
[2020-09-06 09:13] LABS: ALBUMIN 2.8 GM/DL (3.2-5.2); ALT/SGPT 26 U/L (12-78); BILIRUBIN,TOTAL 0.3 MG/DL (0.2-1.0); BLOOD UREA NITROGEN 10 MG/DL (7-18); CALCIUM LEVEL 8.3 MG/DL (8.5-10.1); CARBON DIOXIDE LEVEL 29 MEQ/L (21-32); CHLORIDE LEVEL 112 MEQ/L (98-107); GLOMERULAR FILTRATION RATE > 60.0 (>60); GLUCOSE, FASTING 86 MG/DL (70-100); POTASSIUM SERUM 3.8 MEQ/L (3.5-5.1); SODIUM LEVEL 145 MEQ/L (136-145); TOTAL PROTEIN 5.8 GM/DL (6.4-8.2)
[2020-09-06 18:01] LABS: ALBUMIN 2.9 GM/DL (3.2-5.2); ALT/SGPT 39 U/L (12-78); BILIRUBIN,TOTAL 0.3 MG/DL (0.2-1.0); BLOOD UREA NITROGEN 11 MG/DL (7-18); CALCIUM LEVEL 8.5 MG/DL (8.5-10.1); CARBON DIOXIDE LEVEL 30 MEQ/L (21-32); CHLORIDE LEVEL 111 MEQ/L (98-107); CREATININE FOR GFR 0.75 MG/DL (0.70-1.30); GLOMERULAR FILTRATION RATE > 60.0 (>60); GLUCOSE, FASTING 92 MG/DL (70-100); POTASSIUM SERUM 3.7 MEQ/L (3.5-5.1); SODIUM LEVEL 145 MEQ/L (136-145)
== END 2020-06-15 07:51 | DRG 812 ==
LOC: M ED 16:06 → M ICU 19:15 → M MS5PR 06-12 14:30
PROVIDERS: ADMIT Internal Medicine; ATTEND Internal Medicine
DX: T44.6X2A Poisoning by alpha-adrenoreceptor antagonists, intentional self-harm, initial encounter (principal); G40.909 Epilepsy, unspecified, not intractable, without status epilepticus; R33.9 Retention of urine, unspecified; G92 Toxic encephalopathy; J96.00 Acute respiratory failure, unspecified whether with hypoxia or hypercapnia; J98.11 Atelectasis